=== PATIENT | male | born 1975 | race Caucasian/White ===

== ENCOUNTER 2019-03-22 15:56 | Emergency (ER) | payer SELFPAY ==
[~2019-03-22] VITALS: Ht 170.2 cm; Wt 75.0 kg
[2019-03-22 16:24] VITALS: BP 112/60
== END 2019-03-22 16:52 | disposition home or self-care (01) ==
LOC: EMS 16:00
DX: F41.9 Anxiety disorder, unspecified (principal); F17.210 Nicotine dependence, cigarettes, uncomplicated; F19.90 Other psychoactive substance use, unspecified, uncomplicated; F11.90 Opioid use, unspecified, uncomplicated
CPT/HCPCS: 99406